=== PATIENT | male | born 1980 | race Caucasian/White ===

== ENCOUNTER 2021-08-25 10:30 | Emergency (ER) | payer BC ==
[~2021-08-25] VITALS: Ht 167.6 cm; Wt 79.4 kg
[~2021-08-25 10:30] MED LIST: 'PARAFON FORTE500 M1 PO; AMOXIL125 MG/5 M PO; AUGMENTIN 875 M1 TAB PO; COMBIVENT1 ARO IH; HYDROCODONE BIT1 T11 PO; NAPROSYN500 MG PO; NKHM; VOLTAREN50 M1 PO
[2021-08-25] MEDS ORDERED: PREDNISONE20 M1 PO (14:30)
[2021-08-25] MEDS ORDERED: METHOCARBAMOL500 M1 PO (14:30)
== END 2021-08-25 14:37 | disposition home or self-care (01) ==
LOC: ED 10:30
DX: M54.42 Lumbago with sciatica, left side (principal)